=== PATIENT | female | born 1945 | race Caucasian/White ===

== ENCOUNTER 2016-07-01 13:11 | Observation (INO) | payer MEDICARE ==
[~2016-07-01] VITALS: Ht 167.6 cm; Wt 70.5 kg
[~2016-07-01 13:11] MED LIST: ALTACE10 MG PO; ALTACE5 MG PO; ARICEPT5 MG PO; ASPIRIN81 MG PO; BAYER CHEWABLE81 MG PO; CELEXA20 MG PO; EFFEXOR XR75 MG PO; FLOXIN 0.3 % OTI5 ML OT; HYDROCHLOROTH12.5 M1 PO; LEVAQUIN PREMI750 MG PO; LEVAQUIN500 MG PO; MEGACE40 MG PO; NAMENDA5 MG PO; PLAVIX75 MG PO; PRAVACHOL20 MG PO; SYNTHROID25 MCG PO; TRIMETHOPRIM100 MG PO; VITAMIN D50000 UNIT PO
--- NOTE | 2016-07-01 13:27 | NUR ---
1245 PATIENT ARRIVED TO UNIT VIA STRETCHER WITH EMS FROM 'S OFFICE. PATIENT ALERT TO NAME ONLY. 20 GAUGE IV SITE TO LEFT AC SALINE LOCKED. PATIENT HAS GENERALIZED WEAKNESS, REQUIRES TOTAL ASSIST FOR TRANSFERS AND TURNING AT THIS TIME. PRESSURE ULCER TO COCCYX, DRESSING REMOVED. SIZE APPROX 2CM X2CM X 1.5CM. BUTTOCKS AND SACRUM RED BUT BLANCHABLE. MULTIPLE DISCOLORED AREAS TO BILATERAL LOWER EXTREMITIES. EXTREMITIES VERY COOL TO TOUCH. HYPOTENSIVE UPON ARRIVAL. CALL LIGHT PLACED IN REACH. IV FLUIDS INFUSING ORDERED AT THIS TIME. CALLED AT 1305 AND GAVE DNR ORDERS VIA PHONE, PATIENT WAS HOSPICE AT HOME AND HOSPICE WAS ONLY VISITING ONCE PER WEEK AND FAMILY IS UNABLE TO CARE FOR HER AT THIS TIME. FAMILY TOLD THAT PATIENT HAD BEEN DOING WELL UNTIL TODAY. PATIENT INCONTINENT AND SOILED WITH URINE AND FECES UPON ARRIVAL. INCONTINENT CARE PROVIDED. FAMILY AT BEDSIDE AT THIS TIME.
[2016-07-01] MEDS ORDERED: MEGACE 20 MG TA20 MG PO (13:40)
[2016-07-01] MEDS ORDERED: VITAMIN D250000 UNIT PO (13:41)
[2016-07-01 13:48] VITALS: BP 59/38; BMI 19.6
[2016-07-01 14:43] LABS: BASOPHILS 0.3 % (0.0-2.0); EOSINOPHILS 2.2 % (0-7); HEMATOCRIT 29.5 % (36.0-48.0); HEMOGLOBIN 9.4 g/dL (12-16); IMMATURE GRANULOCYTES 0.2 % (0-5); LYMPHOCYTES 19.2 % (15-50); MCH 29.5 pg (26.0-34.0); MCHC 31.9 g/dL (31.0-37.0); MCV 92.5 fL (80.0-100.0); MEAN PLATELET VOLUME 11.6 fL (7.4-10.4); MONOCYTES 11.8 % (2-11); NEUTROPHILS 66.3 % (40-80); RBC 3.19 10x6/uL (4.00-5.40); RDW 14.2 % (11.5-14.5); WBC 5.8 10x3/uL (4.8-10.8)
--- NOTE | 2016-07-01 14:44 | NUR ---
RESTING IN BED WITH EYES CLOSED. FAMILY AT BEDSIDE. RESP EVEN AND UNLABORED. EASILY AROUSED. CALL LIGHT WITHIN REACH. NO DISTRESS.
[2016-07-01 14:47] LABS: PLATELET COUNT 133 10x3/uL (130-400)
[2016-07-01 15:00] LABS: ALBUMIN 2.5 g/dL (3.4-5.0); ANION GAP 17.5 mmol/L (8-16); BILIRUBIN - TOTAL 0.23 mg/dL (0.2-1.3); CALCIUM 8.7 mg/dL (8.5-10.1); CARBON DIOXIDE 18.2 mmol/L (21.0-32.0); CREATININE - SERUM 2.5 mg/dL (0.6-1.3); POTASSIUM - SERUM 4.7 mmol/L (3.5-5.1); PROTEIN - SERUM 6.1 g/dL (6.4-8.2)
--- NOTE | 2016-07-01 15:45 | NUR ---
INCONTINENT CARE PROVIDED TO PATIENT AT THIS TIME. PATIENT MORE ALERT, ABLE TO ASSIST WITH TURNING. CONTINUING WITH IV FLUIDS ORDERED. CALL LIGHT WITHIN REACH. NO DISTRESS.
[2016-07-01 15:51] VITALS: BP 112/72
[2016-07-01 19:00] VITALS: BP 116/68
--- NOTE | 2016-07-01 19:00 | NUR ---
REPORT RECIEVED, INITIAL ASSESSMENT COMPLETE, PLEASE SEE FLOW SHEETS FOR DETAILS. DENIES PAIN/NEEDS AT THIS TIME. BED LOW AND LOCKED, CALL LIGHT IN REACH. VSS, WILL CONTINUE TO MONITOR.
--- NOTE | 2016-07-02 00:19 | NUR ---
PT AWAKE AND WATCHING TELEVISION. DENIES PAIN/NEEDS AT THIS TIME. BED LOW AND LOCKED, CALL LIGHT IN REACH. WILL CONTINUE TO MONITOR.
--- NOTE | 2016-07-02 03:32 | NUR ---
PT AWAKE WATCHING TV. DENIES PAIN/NEEDS AT THIS TIME. BED LOW AND LOCKED, CALL LIGHT IN REACH. WILL CONTINUE TO MONITOR.
[2016-07-02 04:00] VITALS: BP 108/61
[2016-07-02 07:39] VITALS: BP 149/74
[2016-07-02 11:38] VITALS: BP 115/68
[2016-07-02 13:50] VITALS: Ht 167.6 cm; Wt 70.5 kg
--- NOTE | 2016-07-02 15:00 | NUR ---
WOUND CARE CONSULT: PT ADMITTED FROM HOME ON 07/01/16. SHE IS NOTED TO HAVE A STAGE 3 PRESSURE INJURY ON HER SACRUM. MEASUREMENTS ARE 0.5CM X 1CM X 1CM. SURROUNDING THE WOUND IS BLANCHABLE REDNESS THAT EXTENDS 3CM DOWN ON BILATERAL BUTTOCKS. LEFT HEEL HAS NONBLANCHABLE STAGE 1 PRESSURE INJURY. HEEL IS BOGGY. RIGHT HEEL IS BOGGY WITH REDNESS, BUT IT DOES ANN. RECOMMEND GETTING PT AN AIR OVERLAY MATTRESS. PROTECTING SACRAL AREA WITH MEPILEX DRESSING AND BY TURNING Q2H. CALMOSEPTINE CREAM FOR REDNESS D/T INCONTINENCE. KEEP HEELS BRIDGED AT ALL TIMES WHILE IN BED. WOUND CARE WILL CONTINUE TO MONITOR.
[2016-07-02 15:25] VITALS: BP 119/70
[2016-07-02 22:54] VITALS: BP 132/77
[2016-07-03 00:30] VITALS: BP 140/77
[2016-07-03 05:23] VITALS: BP 117/43
--- NOTE | 2016-07-03 05:30 | NUR ---
ATTEMPT TO RESITE IV X3 TODAY WITHOUT SUCCESS. PT SIGIFREDO PO INTAKE WELL. ONLY ORDERED TO RECEIVE IV HYDRATION, WILL REPORT TO ONCOMING NURSE AND HAVE POSSIBLE VASCULAR ACCESS NURSE COME TO ASSESS PT.
--- NOTE | 2016-07-03 07:19 | NUR ---
PT LAYING TO LEFT SIDE SLEEPING. NO S/S DISTRESS NOTED WILL CONT TO MONITOR.
[2016-07-03 08:00] VITALS: BP 145/61
--- NOTE | 2016-07-03 08:32 | NUR ---
iv ACCESS-#22 GAUGE iv CATHETER IN RIGHT HAND FOR SALINE FLUSH. BEVERLY FERNANDEZ RN
--- NOTE | 2016-07-03 09:01 | NUR ---
PT HAD NO IV ACCESS WHEN I CAME ON SHIFT. ASKED BEVERLY VAS ACCESS NURSE TO SITE PT SHE DID. NOW INFUSING FLUIDS TO R HAND NS @ 75 CC/HR NO PROBLEMS.
--- NOTE | 2016-07-03 09:54 | NUR ---
Patient Name: HEIKE COLLINS Encounter No: [id number] : 1945 Primary Insurance: [facility] IV[employer] ADVANTAGE [facility] PFFS Anticipated DC Date: 07-02-2016 Planned Disposition: Nursing Facility EMILY Cert External Planned Provider: BIENVENIDO MONSIVAIS, ASSURANCE ENGINEER MEDICAID BED WITH [facility] DISCHARGE PLANNING note: * Is the patient Alert and Oriented? No 0 * How many steps to enter\exit or inside your home? NONE 0 * PCP DR. TORRES 0 * Pharmacy [facility] IN [place] 0 * Preadmission Environment Home with Family 0 * ADLs Partial Dependent 0 * Partial ADLs (Assistance needed) Ambulation Bathing Medication Management Toileting Transfers 0 * Equipment Bedside Commode Cane Shower Chair Walker Wheelchair 0 * Other Equipment UNKNOWN MEDICAL EQUIPMENT PROVIDER 0 * List name and contact numbers for known caregivers / representatives who currently or will assist patient after discharge: BLAISE COLLINS, SON, / [phone] (CELL) 0 * Community resources currently utilized Hospice Home 0 * Please name any agencies selected above. [facility] 0 * Additional services required to return to the preadmission environment? Yes * Can the patient safely return to the preadmission environment? No 0 * Has this patient been hospitalized within the prior 30 days at any hospital? No 0 CM SPOKE TO PT IN ROOM WHO WAS ORIENTED TO SELF; PT REPORTS LIVING AT HOME WITH HER SPOUSE AND HER TWO SONS HELP SHE AND HER SPOUSE AT HOME. PT REPORTS SHE THINKS SHE HAS HOSPICE AT HOME AND IS UNSURE OF WHY SHE IS NOT AT HOME. CM CALLED PT'S SON AND LISTED EMERGENCY CONTACT, BLAISE COLLINS, ; BLAISE REPORTED THAT PT WAS SIGNED UP FOR [facility] AT HOME AND HIS FATHER CANNOT TAKE CARE OF HER ANYMORE. [facility] HAS SENT REFERRAL FOR PLACEMENT TO [facility] FOR PLACEMENT WITH CONTINUED HOSPICE CARE. BLAISE WILL BE AT THE HOSPITAL LATER TODAY. CM SPOKE TO KRIS OF [facility], HE IS WORKING ON PLACEMENT FOR PT AND IS COMPLETING PRASHANT PT WILL NEED SCREENING AND PRASHANT APPROVAL TO ENTER [facility] FACILITY. CM TO FOLLOW AND ASSIST NEEDED. Steven Gibbons, CASE MANAGEMENT
--- NOTE | 2016-07-03 11:40 | NUR ---
Patient Name: HEIKE COLLINS Encounter No: [id number] : 1945 Primary Insurance: [employer] IVÁN ADVANTAGE [facility] PFFS Anticipated DC Date: 07-02-2016 Planned Disposition: Nursing Facility EMILY Cert External Planned Provider: TO BE DETERMINED DCP follow-up note: CM CALLED AND SPOKE TO BLAISE AND MC COLLINS AT [phone]; MC REPORTS HE WANTS PT TO CONTINUE WITH [facility] AND PLACE PT AT NURSING FACILITY, JUST NOT THE [facility]. BLAISE REPORTS THAT HE IS PICKING UP THE POWER OF SOCIAL PROBLEMS SPECIALIST PAPERWORK FROM HIS SOCIAL PROBLEMS SPECIALIST TODAY AND WILL BRING THEM TO THE HOSPTIAL TODAY AROUND 2PM AND WILL SIGN WHATEVER PAPERS NEEDING TO BE SIGNED TO ASSIST WITH PT'S PLACEMENT AND CARE. RN NAZANIN LOPEZ NOTIFIED MARILY HIDALGO OF [facility]. CM TO COMPLETE AND SUBMIT PRASHANT SCREENING MEDICAL RECORD REVIEW INDICATES MAJOR DEPRESSION DIAGNOSIS. CM WILL PREPARE AND SEND OUT REFERRALS TO LOCAL NURSING FACILITIES TO INCLUDE HOMES IN [place]; [facility] HAS DECLINED PT YESTERDAY PER [facility]. Steven Gibbons, CASE MANAGEMENT
[2016-07-03 12:00] VITALS: BP 135/84
--- NOTE | 2016-07-03 12:53 | NUR ---
PT IS TO BE EVAL BY HOSPICE. WILL AWAIT THEM TO BE HERE. PT HAS BEEN LETHARGIC ALL DAY ARROUSES TO STIMULI REFUSING TO EAT AND WILL GO RIGHT BACK TO SLEEP. WILL CONTINUE TO MONITOR.
--- NOTE | 2016-07-03 13:40 | NUR ---
PT LAYING DOWN IN BED SLEEPING. PT VERY LETHARGIC NO S.S DISTRESS WILL CONT TO MONITOR
[2016-07-03 16:00] VITALS: BP 135/72
--- NOTE | 2016-07-03 17:23 | NUR ---
Patient Name: HEIKE COLLINS Encounter No: [id number] : 1945 Primary Insurance: MEDI IVÁN ADVANTAGE [facility] PFFS Anticipated DC Date: 07-02-2016 Planned Disposition: Nursing Facility EMILY Cert External Planned Provider: [facility], LONG TERM CARE MEDICAID BED DCP follow-up note: PT'S SPOUSE AND SON ARRIVED TO HOSPITAL, ASSISTED CM WITH PRASHANT COMPLETION. CM TO OBTAIN DOCTOR SIGNATURES AND FAX TO [facility] TOMORROW. MR. COLLINS ADVISED THAT PT WILL GO TO [facility] IN [place] AND THEY DO NOT WANT HOSPICE AT THIS TIME, BUT WILL CONTACT [facility] WHEN READY SOMETIME IN THE FUTURE. PT'S SPOUSE AND SON REPORT VISITING THE INTERMEDIATE TODAY AND THEY PLAN TO ACCEPT PT WHEN PRASHANT IS COMPLETED. CM TO OBTAIN DOCTORS SIGNATURES AND FAX [facility] 07-04-16 FOR INTERMEDIATE ENTRY APPROVAL. CM WILL ALSO FAX REFERRAL TO [facility] FOR ADMISSION. Steven Gibbons, CASE MANAGEMENT
--- NOTE | 2016-07-03 17:48 | NUR ---
PT SITTING UP IN BED DENIES NEEDS SON AT BEDSIDE. WILL CONT TO MONITOR.
--- NOTE | 2016-07-03 17:49 | NUR ---
PT HAS BEEN TURNED Q2 TODAY PER WINE CELLAR WORKER
[2016-07-03 21:18] VITALS: BP 118/53
[2016-07-04 01:12] VITALS: BP 140/83
[2016-07-04 05:01] VITALS: BP 137/74
[2016-07-04 06:56] LABS: BASOPHILS 0.7 % (0.0-2.0); HEMATOCRIT 24.4 % (36.0-48.0); HEMOGLOBIN 7.7 g/dL (12-16); IMMATURE GRANULOCYTES 0.7 % (0-5); LYMPHOCYTES 38.2 % (15-50); MCH 28.5 pg (26.0-34.0); MCHC 31.6 g/dL (31.0-37.0); MCV 90.4 fL (80.0-100.0); MEAN PLATELET VOLUME 11.3 fL (7.4-10.4); MONOCYTES 10.8 % (2-11); NEUTROPHILS 43.6 % (40-80); PLATELET COUNT 119 10x3/uL (130-400); RDW 14.2 % (11.5-14.5); WBC 4.5 10x3/uL (4.8-10.8)
--- NOTE | 2016-07-04 07:00 | NUR ---
PT SITTING UP IN BED DENIES NEEDS WILL CONT TO MONITOR.
[2016-07-04 07:17] LABS: ALBUMIN 2.3 g/dL (3.4-5.0); BILIRUBIN - TOTAL 0.26 mg/dL (0.2-1.3); CALCIUM 8.2 mg/dL (8.5-10.1); CARBON DIOXIDE 17.3 mmol/L (21.0-32.0); CREATININE - SERUM 1.8 mg/dL (0.6-1.3); POTASSIUM - SERUM 4.2 mmol/L (3.5-5.1); PROTEIN - SERUM 5.2 g/dL (6.4-8.2)
[2016-07-04 07:19] LABS: ANION GAP 18.9 mmol/L (8-16)
[2016-07-04 08:00] VITALS: BP 146/74
--- NOTE | 2016-07-04 09:54 | NUR ---
Patient Name: HEIKE COLLINS Encounter No: [id number] : 1945 Primary Insurance: MEDI IVÁN ADVANTAGE [facility] PFFS Anticipated DC Date: 07-02-2016 Planned Disposition: Nursing Facility EMILY Cert External Planned Provider: [facility] LIME KILN AND RECAUSTICIZING OPERATOR MEDICAID BED DCP follow-up note: CM COMPLETED AND FAXED PRASHANT TO DR. TORRES FOR SIGNATURE. CM FAXED REFERRAL TO [facility] AT [phone] AND THEN TO [phone]. NAZANIN RECEIVED CALL FROM [facility] ON EVENING OF 07-03-16 WHO REPORTED THAT [facility] WILL ACCEPT PT FOR LIME KILN AND RECAUSTICIZING OPERATOR CARE WHEN PRASHANT IS APPROVED. CM WILL FAX SIGNED PRASHANT, WHEN RECEIVED, TO [facility] AT [phone]. HANS Cardenas
--- NOTE | 2016-07-04 11:54 | NUR ---
PT ORDERED TO HAVE BLOOD GIVEN. CALLED HER SON TWICE FOR CONSENT. NO ANSWER.
[2016-07-04 12:00] VITALS: BP 143/80
--- NOTE | 2016-07-04 14:05 | NUR ---
Nutrition follow-up: PO intake is very poor at this time. Pt is refusing some meals due to lethargy. Labs reviewed. Diet changed to regular puree with nectar thick liquids due to pt with very poor po intake at this time. RDN feels diet change will encourage increased po intake. RDN following.
--- NOTE | 2016-07-04 14:46 | NUR ---
Patient Name: HEIKE COLLINS Encounter No: [id number] : 1945 Primary Insurance: [facility] IV[facility]N ADVANTAGE [facility] PFFS Anticipated DC Date: 07-02-2016 Planned Disposition: Nursing Facility EMILY Cert External Planned Provider: [facility], LONG TERM CARE MEDICAID BED DCP follow-up note: CM RECEIVED DOCTORS SIGNATURES ON [employer], FAXED SIGNED PRASHANT SCREENING WITH SUPPORTING DOCUMENTS TO [email or web address] AT [phone]. [facility] TO ACCEPT WHEN CLEARED BY [email or web address]. CM WAITING PRASHANT SCREENING COMPLETION AND CLEARANCE FOR ENTRY INTO [facility]. Steven Freeman, STEVEN FREEMAN
--- NOTE | 2016-07-04 15:00 | NUR ---
[facility] STILL NOT READY FOR PT.
--- NOTE | 2016-07-04 15:00 | NUR ---
PT SITTING UP IN BED DENIES NEEDS PT IN NO S/S DISTRESS AT THIS TIME WILL CONT TO MONITOR.
[2016-07-04 16:00] VITALS: BP 139/60
--- NOTE | 2016-07-04 16:28 | NUR ---
Patient Name: HEIKE COLLINS Encounter No: [id number] : 1945 Primary Insurance: MEDI IVÁN ADVANTAGE [facility] PFFS Anticipated DC Date: 07-05-2016 Planned Disposition: Nursing Facility EMILY Cert External Planned Provider: [facility] C[facility] MEDICAID BED DCP follow-up note: CM RECEIVED PR[facility]ANT EXEMPTION FOR ENTRY INTO [facility]. CM CALLED [facility] OF [facility], , WHO WILL ACCEPT PT TOMORROW, 07-05-16.RN NAZANIN LOPEZ INFORMED DR. TORRES OF [facility] CLEARANCE AND HALF-WAY ACCEPTANCE FOR 07-05-16. FOR DISCHARGE, FAX DISCHARGE INFORMATION TO [facility] AT [phone], NURSE REPORT TO BE CALLED TO [facility] AT [phone]. PT TO TRANSPORT VIA AMBULANCE. HANS Cardenas
--- NOTE | 2016-07-04 17:39 | NUR ---
INITIATED PTS BLOOD TRANSFUSION. PREVITALS STABLE. INFUSING VIA R.HAND PIV WITH DRSG CDI AND SWAB CAPS IN USE. WILL CONTINUE TO MONITER PT IN ROOM FOR FIRST 15 MINS TO WATCH FOR ANY REACTION. PT RESTING QUIETLY AND DENIES ANY CURRENT NEEDS AT THIS TIME. WILL CTM.
--- NOTE | 2016-07-04 17:55 | NUR ---
NO REACTION NOTED AFTER FIRST 15 MINS OF TRANSFUSION. VSS. PT RESTING COMFORTABLY AND DENIES ANY CURRENT PAIN OR NEEDS. WILL CPOC.
--- NOTE | 2016-07-04 19:50 | NUR ---
BACK TO ROOM FROM OIL FIELD RIG BUILDER, VITALS STABLE. DRSG TO RIGHT GROIN C/D/I. NO SWELLING, BLEEDING OR HEMATOMA NOTED. PEDAL PULSES PALPABLE, PT DENIES PAIN OR NEEDS. PLACED ON TELEMETRY, 83 SR, WILL CONT TO MONITOR.
--- NOTE | 2016-07-04 20:46 | NUR ---
BLOOD FINISHED INFUSING, LINE FLUSHING WITH NS. VITALS REMIAN STABLE. NO S/S ADVERSE REACTION NOTED.
[2016-07-04 21:54] LABS: HEMATOCRIT 29.8 % (36.0-48.0); HEMOGLOBIN 9.5 g/dL (12-16)
[2016-07-04 22:07] VITALS: BP 156/98
[2016-07-05 01:00] VITALS: BP 151/75
[2016-07-05 04:31] VITALS: BP 174/86
--- NOTE | 2016-07-05 07:00 | NUR ---
RECEIVED REPORT. ASSUMED CARE OF PATIENT. RESTING WITH EYES CLOSED. RESP EVEN AND UNLABORED. 1ST STEP OVERLAY PATENT. CALL LIGHT WITHIN REACH. NO DISTRESS NOTED.
[2016-07-05 08:00] VITALS: BP 124/67
--- NOTE | 2016-07-05 09:58 | NUR ---
DRESSING CHANGE PROVIDED TO COCCYX AT THIS TIME. MEPILEX APPLIED TO PROTECT AREA.
--- NOTE | 2016-07-05 10:00 | NUR ---
RECEIVED CALL FROM CASE MANAGEMENT, MARKELL, THAT SHE CALLED AND SPOKE TO ROBI AT [facility] TO TOUCH BASE AND MAKE SURE THAT THEY ARE EXPECTING PATIENT THIS AM. ROBI STATED SHE WAS NOT AWARE OF ANY ADMISSIONS TODAY AND THAT SHE WOULD CALL HER CONSOLIDATION ACCOUNTANT AND CALL MARKELL BACK WHEN SHE KNEW FOR SURE THAT IT WAS OK FOR PATIENT TO BE ADMITTED. AT THIS TIME, WAITING MANAGER FUNCTIONAL BACK FROM [facility].
--- NOTE | 2016-07-05 11:44 | NUR ---
NOTIFIED BY CASE MAANAGMENT THAT PATIENT WILL BE ACCEPTED TO [facility] FOR [facility] TODAY. REPORT TO BE CALLED TO CHIDI AT [phone].
--- NOTE | 2016-07-05 11:51 | NUR ---
REPORT CALLED TO [facility] [place] AT THIS TIME. [phone].
--- NOTE | 2016-07-05 12:03 | NUR ---
22 GAUGE IV REMOVED FROM RIGHT HAND. CATHETER TIP INTACT. IV REMOVED DUE TO PATIENT TRANSFERRING TO [facility]. NO BLEEDING FROM SITE. 2X2 GAUZE APPLIED AND SECURED WITH TAPE. TOLERATED IV REMOVAL WELL.
--- NOTE | 2016-07-05 12:15 | NUR ---
[facility] CALLED FOR TRANSPORT. PATIENT PLACED ON LIST. [facility] STATED IT MAY BE 45 MIN TO ONE HOUR BEFORE PATIENT IS PICKED UP DUE TO EMERGENCIES.
--- NOTE | 2016-07-05 13:10 | NUR ---
ASSISTED WITH TRANSFERRING PATIENT TO EMS [facility]. PATIENT LEFT UNIT AT THIS TIME WITH ALL PERSONAL BELONGINGS. PATIENT BEING DISCHARGED TO [facility]. PATIENT LEFT UNIT WITH EMS [facility]IA [facility] IN NO DISTRESS.
== END 2016-07-05 13:12 ==
LOC: OBSVTIME 13:11 → D.M2 13:11
PROVIDERS: ADMIT Family Medicine
DX: I95.9 Hypotension, unspecified (principal); D64.9 Anemia, unspecified; R53.1 Weakness; F03.90 Unspecified dementia, unspecified severity, without behavioral disturbance, psychotic disturbance, mood disturbance, and anxiety; R13.10 Dysphagia, unspecified; L89.153 Pressure ulcer of sacral region, stage 3; I25.10 Atherosclerotic heart disease of native coronary artery without angina pectoris; Z95.5 Presence of coronary angioplasty implant and graft; F32.9 Major depressive disorder, single episode, unspecified; E03.9 Hypothyroidism, unspecified; N18.3 Chronic kidney disease, stage 3 (moderate)

== ENCOUNTER 2016-09-19 09:30 | Inpatient (IN) | payer MEDICARE ==
[~2016-09-19] VITALS: Ht 167.6 cm; Wt 70.3 kg
[2016-09-19] VITALS (8 sets, daily range): BP systolic 123–178; BP diastolic 66–95; BMI 25.0
[~2016-09-19 09:30] MED LIST changes: +MEGACE 20 MG TA20 MG PO; +VITAMIN D250000 UNIT PO
[2016-09-19 11:55] LABS: APPEARANCE CLEAR (CLEAR); BILIRUBIN NEGATIVE (NEGATIVE); COLOR YELLOW (YELLOW); GLUCOSE NEGATIVE (NEGATIVE); KETONE NEGATIVE (NEGATIVE); LEUKOCYTE ESTERASE NEGATIVE (NEGATIVE); NITRITE NEGATIVE (NEGATIVE); PROTEIN NEGATIVE (NEGATIVE); SPECIFIC GRAVITY 1.015 (1.005-1.020); UROBILINOGEN NORMAL (NORMAL)
[2016-09-19 11:56] LABS: BACTERIA FEW /hpf (NONE SEEN); EPITHELIAL CELLS NSEEN /hpf (0-5); RED CELLS - URINE 0-5 /hpf (0-5); WHITE CELLS - URINE RARE /hpf (0-5)
[2016-09-19 12:45] LABS: BASOPHILS 0.2 % (0.0-2.0); EOSINOPHILS 7.7 % (0-7); HEMOGLOBIN 8.6 g/dL (12-16); IMMATURE GRANULOCYTES 0.2 % (0-5); LYMPHOCYTES 24.9 % (15-50); MCH 29.6 pg (26.0-34.0); MCHC 31.9 g/dL (31.0-37.0); MCV 92.8 fL (80.0-100.0); MEAN PLATELET VOLUME 11.2 fL (7.4-10.4); MONOCYTES 17.4 % (2-11); NEUTROPHILS 49.6 % (40-80); PLATELET COUNT 116 10x3/uL (130-400); RBC 2.91 10x6/uL (4.00-5.40); RDW 14.5 % (11.5-14.5); WBC 4.3 10x3/uL (4.8-10.8)
[2016-09-19 12:58] LABS: INR 0.94 (0.85-1.17); PROTIME 12.4 SECONDS (11.6-15.0)
[2016-09-19 13:08] LABS: ALBUMIN 2.7 g/dL (3.4-5.0); ANION GAP 14.1 mmol/L (8-16); BILIRUBIN - TOTAL 0.27 mg/dL (0.2-1.3); CALCIUM 7.9 mg/dL (8.5-10.1); CARBON DIOXIDE 23.9 mmol/L (21.0-32.0); CREATININE - SERUM 1.7 mg/dL (0.6-1.3); MAGNESIUM - SERUM 2.1 mg/dL (1.8-2.4)
--- NOTE | 2016-09-19 14:48 | NUR ---
SISTER OF PT NOTIFIES THIS NURSE OF PRESSURE ULCER ON COCCYX OF PT, IN OR PRESSURE ULCER NOTED, DEEP NOT PACKED. DR. RUANO NOTIFIED
--- NOTE | 2016-09-19 15:58 | NUR ---
Patient Name: HEIKE COLLINS Admission Status: ER Accout number: [id number] Admission Date: 09-19-2016 : 1945 Admission Diagnosis: hip fracture Attending: SY Current LOS: 1 Anticipated DC Date: 09-23-2016 Planned Disposition: Custodial Facility Primary Insurance: [email or web address] ADVANTAGE [facility] PF Discharge Planning Comments: CM met with patient and family. Patient is a resident at [facility] and had [facility] services. [facility] has come to the ER and revoked her hospice service due to patient being admitted into the hospital. CM asked spouse if he wanted to [place] services [place]. He stated he was not very happy with the hospice agency. CM encouraged him to contact the facility to see whom all they contract with hospice [place]. He verbalized understanding. He stated patient would not participate in therapy prior and they elected to go with hospice. Unsure if patient will participate in therapy post dc from this stay. Spouse reports patient will be returning to [place]. CM will continue to follow and will assist with dc plans/needs. Supervisor Inspection And Testing: Alicia Salazar RN, [facility] [phone] Is the patient Alert and Oriented? No * How many steps to enter\exit or inside your home? none * PCP Dr. Mckeon * Pharmacy [facility] * Preadmission Environment Custodial Facility * Facility Name [facility] w/ [facility]. * ADLs Total Dependent * List name and contact numbers for known caregivers / representatives who currently or will assist patient after discharge: Mychal - spouse - [phone] Latha Connolly - niece - [phone] * Community resources currently utilized None * Additional services required to return to the preadmission environment? Yes * Can the patient safely return to the preadmission environment? Yes * Has this patient been hospitalized within the prior 30 days at any hospital? No
--- NOTE | 2016-09-19 16:15 | NUR ---
PATIENT TO ROOM AT THIS TIME. IV INTACT. NO COMPLAINTS. VS STABLE. RIGHT HIP DRESSING CDI. SWELLING TO BLE NOTED. ABLE TO FEEL TOES AND MOVE FEET. FAMILY AT BEDSIDE. CALL LIGHT WITHIN REACH.
--- NOTE | 2016-09-19 17:30 | NUR ---
PATIENT IN BED WITH NO COMPLAINTS. VS STABLE. IV INTACT. REFUSES TO TURN SO I CAN ASCESS COCCYX. PATIENT CONFUSED AND AGITATED. STATES SHE WANTS HER BP CUFF OFF. EXPLAINED HAD TO LEAVE IT ON FOR A WHILE LONGER. FAMILY AT BEDSIDE. CALL LIGHT WITHIN REACH.
--- NOTE | 2016-09-19 18:50 | NUR ---
PATIENT IN BED WITH EYES CLOSED RESTING QUIETLY. IV INTACT. DENIS INTACT. BA ON. FAMILY AT BEDSIDE. CALL LIGHT WITHIN REACH.
[2016-09-19 20:41] LABS: HEMATOCRIT 31.3 % (36.0-48.0); HEMOGLOBIN 10.2 g/dL (12-16)
[2016-09-20 05:11] LABS: BASOPHILS 0.5 % (0.0-2.0); EOSINOPHILS 9.2 % (0-7); HEMATOCRIT 28.1 % (36.0-48.0); HEMOGLOBIN 9.3 g/dL (12-16); MCH 30.2 pg (26.0-34.0); MCHC 33.1 g/dL (31.0-37.0); MCV 91.2 fL (80.0-100.0); MEAN PLATELET VOLUME 11.2 fL (7.4-10.4); MONOCYTES 17.8 % (2-11); NEUTROPHILS 44.5 % (40-80); RBC 3.08 10x6/uL (4.00-5.40); RDW 14.6 % (11.5-14.5); WBC 3.7 10x3/uL (4.8-10.8)
[2016-09-20 05:17] LABS: PLATELET COUNT 92 10x3/uL (130-400)
[2016-09-20 05:25] VITALS: BP 131/73
[2016-09-20 05:35] LABS: ALBUMIN 2.3 g/dL (3.4-5.0); ANION GAP 13.4 mmol/L (8-16); BILIRUBIN - TOTAL 0.69 mg/dL (0.2-1.3); CALCIUM 7.8 mg/dL (8.5-10.1); CARBON DIOXIDE 22.1 mmol/L (21.0-32.0); CREATININE - SERUM 1.6 mg/dL (0.6-1.3); POTASSIUM - SERUM 4.5 mmol/L (3.5-5.1); PROTEIN - SERUM 5.8 g/dL (6.4-8.2)
--- NOTE | 2016-09-20 07:50 | NUR ---
PATIENT PULLED DENIS AND IV OUT DURING THE NIGHT. MARILY TORRES PUT IV IN THE LEFT ARM AND [place] SEN REINSERTED A DENIS. THE PATIENT IS CONFUSED AND CONTINUING TO PULL ON HER DENIS.
--- NOTE | 2016-09-20 07:55 | NUR ---
PATIENT RECEIVED ALERT IN MID ANDERSON POSITION. RESPIRATIONS EVEN AND UNLABORED. SIDE RAILS UP X2. BED IN LOW POSITION. CALL LIGHT IN REACH. BED ALARM ON. DENIES PAIN AND OTHER NEEDS.
--- NOTE | 2016-09-20 08:17 | NUR ---
PATIENT ALERT IN BED. RESPIRATIONS EVEN AND UNLABORED. REPOSITIONED IN BED FOR COMFORT. DENIES PAIN. SCHEDULED MEDICATION ADMINISTERED. SIDE RAILS UP X2. BED IN LOW POSITION. CALL LIGHT IN REACH.
[2016-09-20 09:05] VITALS: BP 120/78
--- NOTE | 2016-09-20 10:15 | NUR ---
[facility] CONTACTED. HOME MED LIST RECEIVED AND UPDATED IN COMPUTER.
[2016-09-20] MEDS ORDERED: FERROUS SULFAT325 MG PO (10:19)
[2016-09-20] MEDS ORDERED: ULTRAM50 MG PO (10:19)
[2016-09-20] MEDS ORDERED: MULTIPLE VITAMI1 TA1 PO (10:20)
[2016-09-20] MEDS ORDERED: LASIX40 MG PO (10:20)
[2016-09-20] MEDS ORDERED: NAMENDA5 MG PO (10:20)
[2016-09-20] MEDS ORDERED: ATIVAN0.5 MG PO (10:20)
[2016-09-20] MEDS ORDERED: FOLATE0.4 MG PO (10:20)
[2016-09-20] MEDS ORDERED: VITAMIN D31000 UNIT PO (10:21)
[2016-09-20] MEDS ORDERED: K-DUR20 MEQ PO (10:21)
[2016-09-20] MEDS ORDERED: PROMOD LIQUID P30 M1 PO (10:21)
[2016-09-20] MEDS ORDERED: ASCORBIC ACID500 MG PO (10:21)
[2016-09-20] MEDS ORDERED: ZINC-220220 MG PO (10:22)
[2016-09-20] MEDS ORDERED: EFFEXOR37.5 MG PO (10:22)
[2016-09-20] MEDS ORDERED: ACETAMINOPHEN325 MG PO (10:22)
[2016-09-20 10:23] VITALS: Ht 167.6 cm; Wt 70.3 kg
--- NOTE | 2016-09-20 11:40 | NUR ---
PATIENT REPOSITIONED IN BED. INCONTINENT OF BOWEL. PATIENT CLEANED AND CHUCKS PADS CHANGED. MORPHINE ADMINISTERED PER PRN ORDER. SIDE RAILS UP X3. BED IN LOW POSITION. CALL LIGHT IN REACH. BED ALARM ON.
[2016-09-20 11:59] VITALS: BP 112/60
--- NOTE | 2016-09-20 12:45 | NUR ---
PATIENT IN LOW ANDERSON POSITION RESTING WITH EYES CLOSED. RESPIRATIONS EVEN AND UNLABORED. SIDE RAILS UP X2. BED IN LOW POSITION. CALL LIGHT IN REACH.
--- NOTE | 2016-09-20 14:40 | NUR ---
PATIENT IN MID ANDERSON POSITION RESTING WITH EYES CLOSED. RESPIRATIONS EVEN AND UNLABORED. SIDE RAILS UP X2. BED IN LOW POSITION. CALL LIGHT IN REACH. FAMILY PRESENT AT BEDSIDE. BED ALARM ON.
[2016-09-20 15:40] VITALS: BP 154/85
--- NOTE | 2016-09-20 16:40 | NUR ---
PATIENT REPOSITIONED IN BED. WELL TOLERATED. SIDE RAILS UP X2. BED IN LOW POSITION. CALL LIGHT IN REACH. BED ALARM ON.
[2016-09-20 22:24] VITALS: BP 147/73
--- NOTE | 2016-09-20 22:39 | NUR ---
PATIENT RESTING IN BED AND APPEARS TO BE IN PAIN WHEN SHE MOVES. I ADMINISTERED PAIN MEDICATION IN ADDITION TO HER NIGHT TIME MEDS. PATIENT'S BED IS IN THE LOWEST POSTION, CALL LIGHT WITHIN REACH, AND HER BED ALARM IS ON. ENCOURAGED THE PATIENT TO CALL IF SHE HAS FURTHER NEEDS.
[2016-09-21 05:34] LABS: BASOPHILS 0.4 % (0.0-2.0); EOSINOPHILS 3.1 % (0-7); HEMATOCRIT 27.8 % (36.0-48.0); IMMATURE GRANULOCYTES 0.2 % (0-5); LYMPHOCYTES 26.8 % (15-50); MCH 29.7 pg (26.0-34.0); MCHC 32.4 g/dL (31.0-37.0); MCV 91.7 fL (80.0-100.0); MEAN PLATELET VOLUME 11.7 fL (7.4-10.4); MONOCYTES 23.9 % (2-11); NEUTROPHILS 45.6 % (40-80); PLATELET COUNT 80 10x3/uL (130-400); RBC 3.03 10x6/uL (4.00-5.40); RDW 14.7 % (11.5-14.5)
[2016-09-21 05:36] LABS: WBC 5.5 10x3/uL (4.8-10.8)
[2016-09-21 05:37] LABS: PLATELET ESTIMATE DECREASED
[2016-09-21 06:00] LABS: ANION GAP 11.4 mmol/L (8-16); CALCIUM 7.9 mg/dL (8.5-10.1); CREATININE - SERUM 1.7 mg/dL (0.6-1.3); POTASSIUM - SERUM 4.4 mmol/L (3.5-5.1)
--- NOTE | 2016-09-21 07:20 | NUR ---
PATIENT RECEIVED IN MID ANDERSON POSITION RESTING WITH EYES CLOSED. RESPIRATIONS EVEN AND UNLABORED. SIDE RAILS UP X2. BED IN LOW POSITION. CALL LIGHT IN REACH. BED ALARM ON.
[2016-09-21 08:14] VITALS: BP 148/65
--- NOTE | 2016-09-21 08:45 | NUR ---
PATIENT IN BED RESTING QUIETLY WITH EYES CLOSED. RESPIRATIONS EVEN AND UNLABORED. WAKES EASY. BREAKFAST TRAY SET UP. SCHEDULED MEDICATION ADMINISTERED. DENIES PAIN. SIDE RAILS UP X2. BED IN LOW POSITION. CALL LIGHT IN REACH. BED ALARM ON.
--- NOTE | 2016-09-21 11:30 | NUR ---
PATIENT SITTING UP IN CHAIR RESTING QUIETLY WITH EYES CLOSED. RESPIRATIONS EVEN AND UNLABORED. MANUEL ALARM ON. CALL LIGHT IN REACH.
[2016-09-21 12:44] VITALS: BP 121/68
--- NOTE | 2016-09-21 14:10 | NUR ---
PATIENT IN LOW ANDERSON POSITION RESTING QUIETLY WITH EYES CLOSED. RESPIRATIONS EVEN AND UNLABORED. SIDE RAILS UP X2. BED IN LOW POSITION. CALL LIGHT IN REACH. BED ALARM ON.
--- NOTE | 2016-09-21 15:22 | NUR ---
CM SPOKE WITH PATIENT'S SON, BLAISE COLLINS REGARDING PENDING DISCHARGE AND DC PLANNING / NEEDS. MR. COLLINS VERIFIED DISHCARGE PLAN IS TO RETURN TO [facility]. STATED THAT HE WILL GET WITH HIS FAMILY AND SET UP HOSPICE FOR MRS COLLINS AFTER THEY DECIDE WHICH AGENCY THEY WANT TO SWITCH TO. HE DID NOT WANT CM TO SET UP HOSPICE AT THIS TIME. MR COLLINS DENIED ANY OTHER DISCHARGE NEEDS AT THIS TIME. NAZANIN SPOKE WITH ELEANOR IQBAL AT [facility]. INFORMED OF PENDING DISCHARGE. ELEANOR VOICED UNDERSTANDING AND CONFIRMATION OF DC PLANS TO RETURN TO [place], FAMILY WILL SET UP HOSPICE AT A LATER DATE. BEDSIDE NURSE WILL CALL REPORT TO ELEANOR WITH DC MED LIST AND DC INSTRUCTION. CM WILL CALL EMS FOR TRANSPORT WHEN DC COMPLETED.
[2016-09-21 15:50] VITALS: BP 147/76
--- NOTE | 2016-09-21 15:59 | NUR ---
CM SPOKE WITH PATIENT'S SON, BLAISE COLLINS REGARDING DISCHARGE PLANNING / NEEDS. MR. COLLINS VERIFIED DISHCARGE PLAN IS TO RETURN TO [facility] [place]. STATED THAT HE WILL GET WITH HIS FAMILY AND SET UP HOSPICE FOR MRS COLLINS AFTER THEY DECIDE WHICH AGENCY THEY WANT TO SWITCH TO. HE DID NOT WANT CM TO SET UP HOSPICE AT THIS TIME. MR COLLINS DENIED ANY OTHER DISCHARGE NEEDS AT THIS TIME. NAZANIN SPOKE WITH ELEANOR IQBAL AT [facility]. INFORMED OF POSSIBLE DISCHARGE TOMORROW. ELEANOR VOICED UNDERSTANDING AND CONFIRMATION OF DC PLANS TO RETURN TO [place], FAMILY WILL SET UP HOSPICE AT A LATER DATE. CM WILL NEED TO ARRANGE AMBULANCE TRANSPORT TO ME UPON DC.
--- NOTE | 2016-09-21 18:06 | NUR ---
PATIENT ALERT IN BED. REPOSITIONED FOR COMFORT. NO SIGNS OF DISTRESS NOTED. SIDE RAILS UP X2. BED IN LOW POSITION. CALL LIGHT IN REACH. BED ALARM ON.
--- NOTE | 2016-09-21 19:35 | NUR ---
RECIEVED SHIFT REPORT. PT IS LYING IN BED. ALERT AND ORIENTED AND ABLE TO VERBALIZE NEEDS. IV IS PATENT AND SALINE LOC AT THIS TIME. DRESSING TO RIGHT HIP C/D/I. PT REQUIRES ASSISTANCE TURNING IN BED FOR COMFORT AND SKIN CARE. DENIS IS DRAINING URINE BY GRAVITY. PT STATES PAIN IS 5/10. NO NEEDS ARE VERBALIZED AT THIS TIME. WILL CONTINUE TO MONITOR. SIDE RAILS ARE UP X 2. BED IS IN LOWEST POSITION. BED ALARM IS ON FOR SAFETY. CALL LIGHT IS WITHIN REACH.
[2016-09-21 20:00] VITALS: BP 135/73
--- NOTE | 2016-09-21 21:10 | NUR ---
SHIFT ASSESSMENT COMPLETED. NIGHT MEDS GIVEN WITH NO PROBLEMS. PT C/O PAIN 10/15. ADMINISTERED PRN TYLENOL PER ORDER. DENIES FURTHER NEEDS. WILL MONITOR. SIDE RAILS X 2. BED LOW. BED ALARM ON. CALL LIGHT IN REACH.
[2016-09-22] VITALS: BP 138/68
[2016-09-22 04:00] VITALS: BP 142/70
[2016-09-22 04:59] LABS: BASOPHILS 0.4 % (0.0-2.0); EOSINOPHILS 8.5 % (0-7); HEMATOCRIT 27.4 % (36.0-48.0); IMMATURE GRANULOCYTES 0.2 % (0-5); LYMPHOCYTES 24.1 % (15-50); MCHC 32.8 g/dL (31.0-37.0); MCV 91.3 fL (80.0-100.0); MEAN PLATELET VOLUME 12.1 fL (7.4-10.4); MONOCYTES 20.8 % (2-11); PLATELET COUNT 89 10x3/uL (130-400); RDW 14.6 % (11.5-14.5); WBC 5.4 10x3/uL (4.8-10.8)
[2016-09-22 05:29] LABS: ANION GAP 15.8 mmol/L (8-16); CALCIUM 7.6 mg/dL (8.5-10.1); CARBON DIOXIDE 20.5 mmol/L (21.0-32.0); POTASSIUM - SERUM 4.3 mmol/L (3.5-5.1)
--- NOTE | 2016-09-22 07:00 | NUR ---
REPORT RECIEVED ASSUMED CARE. PATIENT IN BED WITH IV INTACT. NO COMPLAINTS AT THIS TIME. LAYING IN BED WITH EYES CLOSED RESTING QUIETLY. CALL LIGHT WITHIN REACH.
[2016-09-22 08:26] VITALS: BP 131/59
--- NOTE | 2016-09-22 08:30 | NUR ---
ASSESSMENT COMPLETE, VS STABLE. IV INTACT. DENIS INTACT. DRESSING TO HIP CDI. DRESSING TO BUTTOCKS SATURATED. PATIENT CLEANED AND TURNED. LAYING ON SIDE AT THIS TIME. CALL LIGHT WITHIN REACH.
[2016-09-22 11:39] VITALS: BP 144/72
--- NOTE | 2016-09-22 13:30 | NUR ---
PATIENT BATH GIVEN BY CNAS AT THIS TIME.
[2016-09-22 15:26] VITALS: BP 138/62
--- NOTE | 2016-09-22 16:15 | NUR ---
REPORT CALLED TO [place]. WAITING FOR [facility] TO SEE PATIENT THEN WILL CALL AMBULANCE FOR DC. IV INTACT. DENIS INTACT. CALL LIGHT WITHIN REACH.
--- NOTE | 2016-09-22 16:33 | NUR ---
PATIENT RECIEVED TYLENOL AT THIS TIME. STATED SHE WAS HAVING PAIN TO HER COCCYX. STATED HIP WAS NOT HURTING AT ALL. PATIENT TURNED AND CLEANED AT THIS TIME. IV INTACT. CALL LIGHT WITHIN REACH.
--- NOTE | 2016-09-22 17:30 | NUR ---
PATIENT DRESSING TO BUTTOCKS CHANGED AT THIS TIME. WOUND CARE NURSE WAS SUPPOSE TO SEE HER BEFORE SHE LEFT BUT UNABLE TO GET AH[facility] OF [facility]. DRESSING TO BUTTOCKS WITH PACKING AND SACRAL DRESSING PLACED OVER COCCYX. DENIS REMOVED. IV REMOVED WITH CATH TIP INTACT. CALL LIGHT WITHIN REACH.
--- NOTE | 2016-09-24 09:32 | NUR ---
LATE ENTRY: PATIENT DISCHARGED BACK TO [facility] THE [facility]. PATIENT WENT TO A ([facility] BED. FAMILY AWARE
== END 2016-09-22 19:39 | DRG 470 ==
LOC: D.ER 09:30 → D.MS 13:45 → D.SDCHOLD 13:45 → D.MS 15:47
PROVIDERS: Family Medicine; Nurse Practitioner Family; Orthopaedic Surgery Sports Medicine; ADMIT Family Medicine
PROC: 0SRR0JZ Replacement of Right Hip Joint, Femoral Surface with Synthetic Substitute, Open Approach (ICD-10-PCS; principal; 2016-09-19 13:00)
DX: S72.011A Unspecified intracapsular fracture of right femur, initial encounter for closed fracture (principal); W19.XXXA Unspecified fall, initial encounter; R53.1 Weakness; I12.9 Hypertensive chronic kidney disease with stage 1 through stage 4 chronic kidney disease, or unspecified chronic kidney disease; N18.3 Chronic kidney disease, stage 3 (moderate); Z95.5 Presence of coronary angioplasty implant and graft; I25.10 Atherosclerotic heart disease of native coronary artery without angina pectoris; F03.90 Unspecified dementia, unspecified severity, without behavioral disturbance, psychotic disturbance, mood disturbance, and anxiety; D64.9 Anemia, unspecified